=== PATIENT | male | born 2000 | race Caucasian/White ===

== ENCOUNTER 2023-10-18 14:17 | Emergency (ER) | payer BC, SELFPAY ==
[2023-10-18] VITALS (11 sets, daily range): BP systolic 126–148; BP diastolic 71–88; PULSE 69–94; RESP 18; TEMP 39.4; O2SAT 94–97; BMI 19.9
--- NOTE | 2023-10-18 14:32 | ED.GENADULT ---
HPI - General Adult General Time Seen by Provider: 14:32 Date Seen: 10/18/23 Chief complaint: Dental/Oral/Mouth Injury/Pain Stated complaint: Fever, Lip swelling, fatigue Time Seen by Provider: 10/18/23 14:31 Source: patient, RN notes reviewed and old records reviewed Mode of arrival: ambulatory Limitations: no limitations History of Present Illness HPI narrative: 23-year-old male who comes in today with fever. Patient noted some right upper frontal tooth pain for couple of days. That is better although he says the right cheek feels numb now. He started developing fever last night and in today, slight cough, no nasal congestion. Denies chest pain, breathing difficulty, nausea, vomiting, diarrhea, abdominal pain. He has not taken anything for his symptoms. Feels generally weak and achy. Related Data Home Medications Medication Instructions Recorded Confirmed multivitamin with iron .ROUTE 10/18/23 Allergies Allergy/AdvReac Type Severity Reaction Status Date / Time No Known Drug Allergies Allergy Verified 10/18/23 14:29 Exam Narrative: Exam Narrative: General: Well-developed and well-nourished, no acute distress Head: Atraumatic and normocephalic Eyes: Pupils are equal reactive, extraocular motions intact, conjunctiva clear ENT: External nose and ears are normal, posterior pharynx erythematous. No frontal sinus tenderness, slightly decreased sensation in the right cheek in the area of the inferior orbital nerve distribution. No dental tenderness or gingival swelling Neck: No midline cervical tenderness, full spontaneous range of motion the neck, trachea midline, no adenopathy Heart: Regular rate and rhythm no murmurs or thrills Lungs: Clear to auscultation bilaterally without wheezes or crackles Abdomen: Soft, nontender, nondistended with active bowel sounds Musculoskeletal: No tenderness, deformity, or edema Neurologic: Awake, alert, and oriented x3, no gross focal neurologic deficits, cranial nerves intact as tested Psych: Mood and affect are appropriate Skin: No rashes Const: Vital Signs, click to edit/add: Vital Signs - 24 hr 10/18/23 14:25 Temperature 103.0 F H Pulse Rate [Pulse Oximeter] 94 Respiratory Rate 18 Blood Pressure [Ri ght Upper Arm] 126/79 Pulse Oximetry 95 Oxygen Delivery Me thod Room Air Course Course ED Course: Patient seen and examined, prior records reviewed. Patient presents today with tooth pain which is resolved, no dental tenderness to percussion, no gingival or facial swelling to suggest periapical abscess, dental infection, or deep space infection of the face. No sinus tenderness to suggest sinusitis. Posterior pharynx with some erythema, no cervical adenopathy but with fever and generalized but less, strep test is ordered. Influenza and COVID also likely. Chest x-ray ordered for possible pneumonia although no cough or shortness of breath. Will defer further lab testing pending respiratory panel. Reevaluation(s) Time of Reevaluation #1: 15:36 Reevaluation #1: Chest x-ray independently interpreted by me negative for acute findings Time of Reevaluation #2: 16:04 Reevaluation #2: Lives independently interpreted by me with negative strep, negative influenza, negative COVID. Patient remains finally stable in the emergency department. Other than fever, he does not have tachycardia, initial heart rate 194 was factitious. No hypotension. No abdominal pain or tenderness to suggest intra-abdominal infection. No heart murmur or risk factors for endocarditis or myocarditis. Symptoms are most likely related to viral syndrome, continue symptom management close follow-up with primary care . Vital Signs Vital signs: Initial Vital Signs Temperature 103.0 F H 10/18/23 14:25 Temperature Source Temporal Artery Scan 10/18/23 14:25 Pulse Rate 94 10/18/23 14:25 Respiratory Rate 18 10/18/23 14:25 Blood Pressure 126/79 10/18/23 14:25 Blood Pressure Mean 94 10/18/23 14:25 Blood Pressure Position Sitting 10/18/23 14:25 Pulse Oximetry 95 10/18/23 14:25 Oxygen Delivery Method Room Air 10/18/23 14:25 Vital Signs Temperature 103.0 F H 10/18/23 14:25 Pulse Rate 94 10/18/23 14:25 Respiratory Rate 18 10/18/23 14:25 Blood Pressure 126/79 10/18/23 14:25 Pulse Oximetry 95 10/18/23 14:25 Oxygen Delivery Method Room Air 10/18/23 14:25 Temperature 103.0 F H 10/18/23 14:25 Pulse Rate 94 10/18/23 14:25 Respiratory Rate 18 10/18/23 14:25 Blood Pressure 126/79 10/18/23 14:25 Pulse Oximetry 95 10/18/23 14:25 Oxygen Delivery Method Room Air 10/18/23 14:25 Medications Administered Medications: Discontinued Medications Generic Name Dose Route Start Last Admin Trade Name Oleg PRN Reason Stop Dose Admin Sodium Chloride 1,000 mls @ 1,000 mls/hr 10/18/23 14:45 10/18/23 15:35 0.9 % Sodium Chloride 1000 Ml IV 10/18/23 15:44 1,000 mls/hr .Q1H RA Administration Ketorolac Tromethamine 15 mg 10/18/23 14:41 10/18/23 15:38 Ketorolac 15 Mg/Ml Inj IVP 10/18/23 14:42 15 mg ONCE ONE Administration Ondansetron HCl 4 mg 10/18/23 14:41 10/18/23 15:38 Ondansetron 2 Mg/Ml Inj IVP 10/18/23 14:42 4 mg ONCE ONE Administration Medical Decision Making Lab Data Labs: Lab Results 10/18/23 Range/Units 15:10 SARS-CoV-2 (PCR) Negative SARS-CoV-2 (Negative) Influenza Type A (PCR) Negative PCR FLU A (Negative) Influenza Type B (PCR) Negative PCR FLU B (Negative) RSV (PCR) Negative PCR RSV (Negative) Group A Strep DNA NOT DETECTED (Not Detectd) Discharge Plan Discharge Clinical Impression: Acute viral syndrome Patient Disposition: Home, Self-Care Condition: Stable Instructions: Viral Syndrome (ED) Additional Instructions: Tylenol and ibuprofen as needed for fever and body ache Lots of fluids and rest Follow-up with your primary care doctor in 2-3 days Return to the emergency department if you are not feeling better in 1 week, or if you develop chest pain, shortness of breath, unable to tolerate liquids, or other symptoms Activity Level: Activity as Tolerated Discharge Diet: Regular Prescriptions: No Action multivitamin with iron [Daily Vitamin with Iron] .ROUTE Follow Up/Referrals: Provider,Not a Local [Primary Care Provider] - Stand Alone Forms: [employer] Info Instructions
--- NOTE | 2023-10-18 14:41 | XR_ITS ---
Patient: TESS WOODRUFFCOBrandi Facility:?[facility] Patient ID:?[id number] Site Patient ID:?[id number]. Site :?[id number] Study:?XRay-Chest 2 view-10/18/2023 3:23:54 PM Ordering Physician:?Deangelo Rivas Final Report: Indication Fever, cough Technique Two view(s) of the chest Comparison None Findings The cardiomediastinal silhouette and pulmonary vasculature are unremarkable. There is no focal airspace consolidation, pleural effusion, or pneumothorax. No displaced fracture. Impression No acute cardiopulmonary process. Dictated by Dg Eaton MD @ 10/18/2023 3:34:48 PM Signed by:?Dg Etaon MD @10/18/2023 3:34:48 PM (Electronic Signature)
[2023-10-18] MEDS: 0.9 % SODIUM CHLORIDE 1000 ml 1,000 ML IV (15:35)
[2023-10-18] MEDS: KETOROLAC 15 MG/ML inj IVP (15:38)
[2023-10-18] MEDS: ONDANSETRON 2 MG/ML inj 4 MG IVP (15:38)
[2023-10-18 15:46] LABS: Strep A DNA Probe* NOT DETECTED (Not Detectd)
[2023-10-18 15:58] LABS: PCR FLU A Negative PCR FLU A (Negative); PCR FLU B Negative PCR FLU B (Negative); PCR RSV Negative PCR RSV (Negative); SARS PCR* Negative SARS-CoV-2 (Negative)
== END 2023-10-18 16:24 | disposition home or self-care (01) ==
PROVIDERS: Emergency Provider Family Medicine
DX: B34.9 Viral infection, unspecified (principal)
CPT/HCPCS: 71046; 87631; 87651; 96374; 96375; 99284; J1885; J2405; J7030